=== PATIENT | female | born 1965 | race Caucasian/White ===

== ENCOUNTER 2018-04-15 09:08 | Day surgery (SDC) | payer OTHER ==
[2018-04-15] MEDS ORDERED: MIDAZOLAM 1 MG/ML 2 ML INJ ×2 (11:30)
[2018-04-15] MEDS ORDERED: FENTAnyl 50 MCG/ML VIAL (11:30)
== END 2018-04-15 14:41 | disposition home or self-care (01) ==
LOC: GIL 09:08
DX: Z12.11 Encounter for screening for malignant neoplasm of colon (principal); D12.4 Benign neoplasm of descending colon; K64.1 Second degree hemorrhoids
CPT/HCPCS: 45380; 88305